=== PATIENT | female | born 1985 | race Caucasian/White ===

== ENCOUNTER 2017-08-27 14:24 | Inpatient (IN) | payer OTHER ==
[~2017-08-27] VITALS: Ht 157.5 cm; Wt 82.0 kg
[~2017-08-27 14:24] MED LIST: BNT10 PO; CPR500 PO; DIPH-416 PO; LRT5 PO; XNX25 PO
[2017-08-27] MEDS ORDERED: LACTATED RINGER'S 1000ML 1,000 ML IV PRN (15:08)
[2017-08-27] MEDS ORDERED: BUPIVACAINE 0.25% 30 ML VIAL ONE (15:48)
[2017-08-27] MEDS ORDERED: FENTANYL 2MCG/ML ROPIV 1.25MG/ML 100ML BAG EPI ONE (15:49)
[2017-08-27] MEDS ORDERED: EpHEDrine SULFATE INJ 50 MG/ML AMP ONE (15:49)
[2017-08-27] MEDS ORDERED: FENTANYL CITRATE INJ 50 MCG/1 ML 2 ML VIAL ONE (15:49)
[2017-08-27 15:52] LABS: HEMOGLOBIN 10.4 g/dL (12.0-16.0); MEAN CORPUSCULAR HEMOGLOBIN 27.3 pg (25-34); MEAN CORPUSCULAR HGB CONC 32.5 g/dl (32-36); MEAN PLATELET VOLUME 10.1 fL (7.4-10.4); PLATELET COUNT 199 K/uL (130-400); RED CELL DISTRIBUTION WIDTH CV 14.6 % (11.5-14.5); RED CELL DISTRIBUTION WIDTH SD 44.6 fL (36.4-46.3)
[2017-08-27] MEDS: LACTATED RINGER'S 1000ML 1,000 ML IV SCH (16:38)
[2017-08-27 16:53] VITALS: Ht 157.5 cm; Wt 82.0 kg
[2017-08-27] MEDS ORDERED: NALOXONE HCL INJ 1 MG in SODIUM CHLORIDE 0.9% 1000ML 1,000 ML IV PRN (16:55)
[2017-08-27] MEDS ORDERED: LACTATED RINGER'S 1000ML 500 ML IV PRN (16:55)
[2017-08-27] MEDS ORDERED: FENTANYL 2MCG/ML ROPIV 1.25MG/ML 100ML BAG EPI PRN (17:00)
[2017-08-27] MEDS ORDERED: DiphenhydrAMINE HCL 50 MG/ML VIAL IV PRN (17:00)
[2017-08-27] MEDS ORDERED: NALBUPHINE HCL INJ 10 MG/ML 1ML AMP IV PRN (17:00)
[2017-08-27] MEDS ORDERED: NALOXONE HCL INJ 0.4 MG/1 ML VIAL/CARP IV PRN (17:00)
[2017-08-27] MEDS ORDERED: EpHEDrine SULFATE INJ 50 MG/ML AMP IV PRN (17:00)
[2017-08-27] MEDS ORDERED: ONDANSETRON INJ 2 MG/ML 2 ML VIAL IV PRN (17:00)
[2017-08-27] MEDS ORDERED: LACTATED RINGER'S 1000ML 500 ML IV ONE (18:28)
[2017-08-27] MEDS ORDERED: METHYLERGONOVINE MALEATE 0.2 MG/ML AMP ONE (20:56)
[2017-08-27] MEDS ORDERED: MISOPROSTOL 200 MCG TAB PR SCH (21:45)
[2017-08-27] MEDS ORDERED: METHYLERGONOVINE MALEATE 0.2 MG/ML AMP IM ONE (21:45)
[2017-08-27] MEDS ORDERED: ACETAMINOPHEN/CODEINE 300/30MG TAB PO PRN ×2 (21:45)
[2017-08-27] MEDS ORDERED: OXYCODONE/ACETAMINOPHEN 5-325 TAB PO PRN (21:45)
[2017-08-27] MEDS ORDERED: HYDROCORTISONE ACETATE 25 MG SUPP PR PRN (21:45)
[2017-08-27] MEDS ORDERED: BENZOCAINE 20% AER SPR 82.5 GM CAN EXT PRN (21:45)
[2017-08-27] MEDS ORDERED: OXYTOCIN 30 UNITS/500ML NSS IV PRN (21:45)
[2017-08-27] MEDS ORDERED: LANOLIN OINT EXT PRN (21:45)
[2017-08-27] MEDS ORDERED: SUPERCREAM 0.870 % 15GM JAR EXT PRN (21:45)
--- NOTE | 2017-08-27 21:48 | Anesthesia Procedure Note ---
Anesthesia Epidural Removal Nt Date & Time Aug 27, 2017 at 21:48 Vital Signs Pain Intensity: 1 Notes Mental Status: alert / awake / arousable, participated in evaluation Nausea / Vomiting: adequately controlled Pain: adequately controlled Airway Patency, RR, SpO2: stable & adequate BP & HR: stable & adequate Hydration State: stable & adequate Neuraxial Anesthesia: was administered Anesthetic Complications: no major complications apparent, pt satisfied with anesthetic care Epidural: removed without complications, with tip intact
--- NOTE | 2017-08-27 22:12 | HISTORY & PHYSICAL EXAMINATION ---
DATE OF ADMISSION: 08/27/2017 HISTORY OF PRESENT ILLNESS: This is a 32-year-old G1, P0, due date 08/21/2017, making her 40 weeks and 6 days today, who presented to labor and delivery after spontaneous rupture of membranes at 1300 hours on 08/27/2017. On arrival to Labor and Delivery, she had no shortness of breath. No chills. No fever. There was [id number] discharge. AmniSure was done and found to be positive. The patient was examined by a nurse and found to be 4 cm, 90% effaced, and -1 station. Decision was therefore made to admit the patient. COURSE: Has been unremarkable. LABS: Blood type O positive, antibody negative, rubella immune, GBS negative. PAST MEDICAL HISTORY: History of irritable bowel, chronic sinus infection, asthma, and headaches. PAST SURGICAL HISTORY: The patient has had tonsillectomy at age 17 and colposcopies and diagnostic EGDs. ALLERGIES: THE PATIENT IS ALLERGIC TO MINOCYCLINE. SOCIAL HISTORY: The patient is , lives with her spouse. Denies drug, tobacco, or alcohol use. FAMILY HISTORY: Noncontributory. TELECOMMUNICATION ENGINEER HISTORY: This is the patient's first . PHYSICAL EXAMINATION: GENERAL: Well-developed, well-nourished white female in admission, moderate discomfort. HEART: S1, S2, regular rhythm and rate. LUNGS: Clear to auscultation bilaterally. ABDOMEN: Gravid. PELVIC: 4 cm, 90% effaced and -1 station. EXTREMITIES: No cyanosis, clubbing or edema. ASSESSMENT AND PLAN: A 32-year-old G1, P0 at 40 weeks and 6 days. Term premature rupture of membranes. Plan is to admit the patient. The patient is negative GBS. We anticipate vaginal delivery.
--- NOTE | 2017-08-27 22:35 | OPERATIVE REPORT ---
DATE OF OPERATION: 08/27/2017 DELIVERY NOTE The patient delivered a live female in left occiput anterior presentation. There was nuchal cord x2, which was easily reduced. was delivered, placed on mother's abdomen. Cord was clamped after 1 minute. Cord blood and cord gases were obtained. There was terminal meconium after delivery. The patient prior to delivery, there was no record of meconium noted. Placenta was spontaneously delivered. Inspection of the placenta shows a grossly normal-looking placenta with some meconium stain. There is 3-vessel cord. The patient had no fever or foul discharge, abdominal tenderness to her after labor process. The patient had been ruptured at 1300 hours on 08/27/2017. Estimated blood loss is 500 mL. The patient is given Pitocin and IM Methergine and 1000 mcg of Cytotec. Inspection of the perineum showed a second-degree midline laceration, which was repaired in layers with 0 Vicryl and 2-0 Vicryl. Rectal exam post repair showed good sphincter tone. No sutures palpated in the rectum. All instruments were removed from the vagina including packs, sutures, needles, and retractors and accounted for x2. Baby and mother are doing well in recovery. Infant's was reported as 8 and 9, weight is pending. Baby and mother are doing well in recovery. I attest to the content of the Intraoperative Record and any orders documented therein. Any exception s are noted below.
[2017-08-28] VITALS (7 sets, daily range): BP systolic 92–127; BP diastolic 58–82; PULSE 75–120; TEMP 36.5–37.5; O2SAT 98–100
[2017-08-28] MEDS ORDERED: EpHEDrine SULFATE INJ 50 MG/ML AMP ONE (01:04)
[2017-08-28] MEDS ORDERED: BUPIVACAINE 0.25% 30 ML VIAL ONE (01:04)
[2017-08-28] MEDS ORDERED: FENTANYL 2MCG/ML ROPIV 1.25MG/ML 100ML BAG EPI ONE (01:04)
[2017-08-28] MEDS ORDERED: FENTANYL CITRATE INJ 50 MCG/1 ML 2 ML VIAL ONE (01:04)
[2017-08-28] MEDS: IBUPROFEN 600 MG TAB PO PRN ×6 (01:29→23:00)
[2017-08-28] MEDS ORDERED: MISOPROSTOL 200 MCG TAB ONE (02:39)
--- NOTE | 2017-08-28 04:00 | NUR ---
Assisted patient out of bed to use bathroom and educate on cristy care, patient voided x 2 but felt dizzy and nauseated, assisted patient back to bed. VSS, at bedside and supportive, fundus is firm and bleeding is small to moderate with no clots noted. Patient requested be formula fed in nursery for tonight due to her not feeling well
--- NOTE | 2017-08-28 06:49 | OB/GYN Progress Note ---
ASPHALT HEATER TENDER Progress Note Date of Service Aug 28, 2017. Subjective conversation w/ patient, physical exam Ambulation: limited ambulation Voiding: no voiding problems Passing Gas: Yes Diet Tolerance: Regular Diet Lochia: Moderate Feeding Type: Breast Feeding Review of Systems Constitutional: No fever, No chills, No sweats, No weight loss, No weakness, No fatigue, No problem reported Respiratory: No cough, No sputum, No wheezing, No shortness of breath, No dyspnea on exertion, No dyspnea at rest, No hemoptysis, No problem reported Cardiac: No chest pain, No orthopnea, No PND, No edema, No claudication, No palpitations, No problem reported Breast: No see HPI, No breast lump, No change in shape, No nipple discharge, No breast pain, No problem reported Abdomen: No pain, No nausea, No vomiting, No diarrhea, No constipation, No GI bleeding, No problem reported Female : No see HPI, No dysuria, No urinary frequency, No hematuria, No incontinence, No abnormal vaginal bleeding, No vaginal discharge, No problem reported Objective Vital Signs Date Time Temp Pulse Resp B/P (MAP) Pulse Ox O2 Delivery O2 Flow Rate FiO2 08/28/17 04:00 37.0 75 18 122/75 (91) Room Air 08/28/17 00:30 Room Air 08/28/17 00:30 37.5 120 18 127/82 (97) Room Air Physical Exam General Appearance: WELL-APPEARING, WD/WN, NO APPARENT DISTRESS Respiratory/Chest: chest non-tender, lungs clear, normal breath sounds, no respiratory distress Cardiovascular: regular rate, rhythm, no edema, no gallop Abdomen: normal bowel sounds, non tender, soft Fundus: Firm Extremities: normal range of motion, non-tender, normal inspection Laboratory Results Last 24 Hours Test 08/27/17 15:08 08/27/17 15:43 White Blood Count 13.80 K/uL Red Blood Count 3.81 M/uL Hemoglobin 10.4 g/dL Hematocrit 32.0 % Mean Corpuscular Volume 84.0 fL Mean Corpuscular Hemoglobin 27.3 pg Mean Corpuscular Hemoglobin Concent 32.5 g/dl RDW Standard Deviation 44.6 fL RDW Coefficient of Variation 14.6 % Platelet Count 199 K/uL Mean Platelet Volume 10.1 fL Assessment and Plan Day Number: 1 Continue Routine Care: VD DAY #1 PT complaints of fatigue, and light headedness moderate lochia fundus is firm and below umbilicus STAT h/h restart IVF and tocolytics Blanco cath placed
[2017-08-28] MEDS ORDERED: OXYTOCIN 30 UNITS/500ML NSS IV PRN (07:30)
[2017-08-28] MEDS ORDERED: METHYLERGONOVINE MALEATE 0.2 MG/ML AMP IM ONE (07:30)
[2017-08-28] MEDS ORDERED: METHYLERGONOVINE MALEATE 0.2 MG/ML AMP ONE (07:47)
[2017-08-28] MEDS ORDERED: LACTATED RINGER'S 1000ML 500 ML IV SCH (07:55)
--- NOTE | 2017-08-28 08:00 | NUR ---
Received order from Dr. Cote to give IM Methergine, insert Blanco, Pitocin 30 Units in 500ml, then LR bolus of 500 cc than switch 125cc of LR. Patient very painful due to uterine cramping/full bladder. Patient was shaking. Bladder drain for 900cc of clear urine. Gave tylenol #3 x2 after the above was performed.
[2017-08-28 08:05] LABS: HEMATOCRIT 24.2 % (37-47); HEMOGLOBIN 7.8 g/dL (12.0-16.0)
[2017-08-28] MEDS ORDERED: LACTATED RINGER'S 1000ML 1,000 ML IV SCH (08:25)
[2017-08-28] MEDS: DOCUSATE SODIUM 100 MG CAP PO SCH ×2 (09:23→19:47)
[2017-08-28] MEDS: PRENATAL VITAMIN TAB PO SCH (09:23)
[2017-08-28] MEDS: FERROUS SULFATE 325 MG TAB PO SCH (09:23)
--- NOTE | 2017-08-28 11:15 | NUR ---
Pt feeling well enough to attempt at this time. Mother with inverted nipples and baby is tongue tied. Attempted latch, baby unable to latch on. Nipple shield given d/t inverted nipples. Baby did not latch on with use of shield. Baby syringe fed formula by father. Showed mother how to manually express (no colostrum noted) and had mother use breast pump for 15 minutes. Mother got a few drops of colostrum. Colostrum fed to baby.
--- NOTE | 2017-08-28 11:30 | NUR ---
Baby skin to skin with mother. Bonding well.
[2017-08-28] MEDS: LACTATED RINGER'S 1000ML 1,000 ML IV SCH (15:37)
--- NOTE | 2017-08-28 17:40 | NUR ---
pt. dangled for a little bit while eating supper
[2017-08-28 19:28] LABS: HEMATOCRIT 22.5 % (37-47); HEMOGLOBIN 7.5 g/dL (12.0-16.0)
[2017-08-28] MEDS ORDERED: BISACODYL 5 MG TABEC PO SCH (20:00)
[2017-08-29] VITALS (12 sets, daily range): BP systolic 102–118; BP diastolic 67–78; PULSE 88–110; TEMP 36.6–37.1; O2SAT 96–97
[2017-08-29] MEDS: LACTATED RINGER'S 1000ML 1,000 ML IV SCH (01:03)
[2017-08-29] MEDS: IBUPROFEN 600 MG TAB PO PRN ×4 (03:04→20:06)
[2017-08-29 06:14] LABS: HEMATOCRIT 21.8 % (37-47); HEMOGLOBIN 7.1 g/dL (12.0-16.0); MEAN CELL VOLUME 84.5 fL (80-100); MEAN CORPUSCULAR HEMOGLOBIN 27.5 pg (25-34); MEAN CORPUSCULAR HGB CONC 32.6 g/dl (32-36); MEAN PLATELET VOLUME 10.1 fL (7.4-10.4); PLATELET COUNT 170 K/uL (130-400); RED CELL DISTRIBUTION WIDTH CV 14.7 % (11.5-14.5); RED CELL DISTRIBUTION WIDTH SD 45.4 fL (36.4-46.3); WHITE BLOOD COUNT 14.13 K/uL (4.8-10.8)
[2017-08-29] MEDS ORDERED: BISACODYL 10 MG SUPP PR PRN (07:00)
[2017-08-29] MEDS: FERROUS SULFATE 325 MG TAB PO SCH ×2 (08:19→17:35)
[2017-08-29] MEDS: DOCUSATE SODIUM 100 MG CAP PO SCH ×2 (08:19→20:05)
[2017-08-29] MEDS: PRENATAL VITAMIN TAB PO SCH (08:19)
--- NOTE | 2017-08-29 09:14 | OB/GYN Progress Note ---
INTERNET ARCHITECT Progress Note Date of Service: Aug 29, 2017. Patient is seen and examined. She feels well, no complaints other than being tired Ambulated once only to the BR this morning She had pp hemorrhage and was in bed for IVF and enamorado Enamorado was d/c'd this morning and she voided once Tolerating regular diet with out N&V Bleeding is minimal No fever/ chills/ CP/ SOB/ N&V/ Leg pain Breast feeding without problems Date Time Temp Pulse Resp B/P (MAP) Pulse Ox O2 Delivery O2 Flow Rate FiO2 08/28/17 23:10 36.5 99 17 102/66 (78) Room Air 08/28/17 23:10 98 Room Air 08/28/17 19:30 36.9 103 20 115/73 (87) Room Air 08/28/17 16:00 Room Air 08/28/17 15:20 36.9 90 18 92/58 (69) Room Air 08/28/17 11:00 36.5 100 16 101/69 (80) 98 Room Air Pulse 106 Last 24 Hours Test 08/28/17 19:06 08/29/17 05:50 Hemoglobin 7.5 g/dL 7.1 g/dL Hematocrit 22.5 % 21.8 % White Blood Count 14.13 K/uL Red Blood Count 2.58 M/uL Mean Corpuscular Volume 84.5 fL Mean Corpuscular Hemoglobin 27.5 pg Mean Corpuscular Hemoglobin Concent 32.6 g/dl RDW Standard Deviation 45.4 fL RDW Coefficient of Variation 14.7 % Platelet Count 170 K/uL Mean Platelet Volume 10.1 fL PE: General: Pale, Alert, orientedx3, NAD CVS: S1S2 RRR, tachycardic at 106 Lungs: CTAB Abd: soft, NT, fundus firm, below Umbilicus Perineum intact, Lochia rubra minimal Ext; NT, no edema AP: 32 yo s/p , pp hemorrhage controlled with IV pitocin and methergine, ppd# 2 VSS Afebrile doing well Anemic: Hb 7.1, Htc 21 Discussed iron therapy which may take weeks to increase her number vs blood transfusion Discussed the risks of blood transfusion like infection, allergic reaction, fever,c hills, rash, TRALI, severe reaction She read the consent and desired blood to be given today Continue routine care All questions were answered
[2017-08-29] MEDS: ACETAMINOPHEN 325 MG TAB PO PRN (10:35)
--- NOTE | 2017-08-29 12:51 | OB/GYN Progress Note ---
PROMOTIONS REPRESENTATIVE Progress Note Date of Service: Aug 29, 2017. Patient is reevalauated She is receiving the 1st unit of blood No complaints, feels well No fever/ chills/ itching/ rash Date Time Temp Pulse Resp B/P (MAP) Pulse Ox O2 Delivery O2 Flow Rate FiO2 08/29/17 12:35 36.9 102 20 116/75 08/29/17 12:05 37.1 98 16 115/74 08/29/17 12:05 37.1 98 16 115/74 08/29/17 11:50 37.0 102 16 118/74 08/29/17 11:34 36.8 105 18 112/73 08/29/17 08:20 36.7 96 20 105/71 (82) 08/28/17 23:10 36.5 99 17 102/66 (78) Room Air 08/28/17 23:10 98 Room Air 08/28/17 19:30 36.9 103 20 115/73 (87) Room Air 08/28/17 16:00 Room Air 08/28/17 15:20 36.9 90 18 92/58 (69) Room Air VSS Afebrile, doing well Continue to monitor closely Check H&H after transfusion is complete
[2017-08-29] MEDS ORDERED: PRENTAB26 PO (12:53)
[2017-08-29] MEDS ORDERED: FRRS300 PO (12:53)
--- NOTE | 2017-08-29 12:55 | Discharge Instructions ---
Discharge Instructions Date of Service Aug 29, 2017. Admission Reason for Admission: Premature Rupture Of Membranes Discharge Discharge Diagnosis / Problem: , hemorrhage, blood transfusion Discharge Goals Goal(s): Routine recovery after delivery Medications Continue Dispensed Medications: lansinoh Activity Recommendations Activity Limitations: as noted below ACTIVITY RECOMMENDATIONS: * Gradual return to full activity over the next 2-3 weeks. * No lifting - nothing heavier than baby over the next 2-3 weeks. * Do not engage in vigorous exercise, sexual activity or sports until cleared by your physician. * Do not drive or operate any motorized equipment until cleared by your physician. * You may shower/bathe daily. BREAST CARE: If you are not breast feeding: * Wear a supportive bra 24 hours a day for one to two weeks. * Avoid stimulating your breasts and nipples as much as possible during the first few weeks after delivery. * When taking a shower, have the warm water hit your back, not breasts. * When your breasts feel full, apply ice packs. Usually three to four times a day helps ease the discomfort. * Take a mild pain medication (Tylenol/Motrin) when you are uncomfortable. If breast feeding: * Use breast milk to lubricate nipples. Lansinoh cream may be used for sore nipples. You do not need to remove cream prior to breast feeding. If using a different brand of cream, check the label for directions regarding removal of cream prior to nursing. * Wear a supportive bra. * If having problems with breasts or breast feeding, call a acura sales consultant or your health care provider. EPISIOTOMY CARE: After delivery, if you have an episiotomy (stitches), the following steps will ease discomfort and aid healing. * For the first 24 hours after delivery, place ice packs next to your episiotomy to help reduce swelling. * After the first 24 hour-period, sitz baths, either portable or in the tub, are suggested. A shower with a shower arm sprayed over the episiotomy may be comforting. * Lamar care should be done after each voiding and bowel movement. Squirt warm water from a plastic bottle over the perineum (region of the body between the anus and urinary opening) and pat dry. * Use Dermoplast to ease discomfort. Shake container. Claude directly over the episiotomy. * Place a Tucks on a clean sanitary pad next to your episiotomy. OVER THE COUNTER MEDICATION: * For discomfort or pain, you may use Acetaminophen (Tylenol), Ibuprofen (Advil ), or Naproxen (Aleve) following the package directions. * For constipation you may use Colace following the package directions. SPECIAL CARE INSTRUCTIONS: When you are discharged from the hospital, it is important for you to follow the instructions listed below: * During the first week at home, you should be able to care for yourself and your baby. In addition, the usual light household activities are encouraged. * Limit your activities to the way you feel. Do not try to clean the house or move furniture. Be sensible. * If you actively engage in sports and have done so up until the time of your delivery, you may resume these activities as soon as you feel able. This may take up to one month or even longer. Use good judgment. * Continue to take your vitamins for at least six weeks after the of your baby. * Your diet need not be limited unless you were on a special diet before your delivery. Breast-feeding mothers need around 2500 calories per day and at least 64-80 ounces of fluid per day (8 to 10 glasses). * You should eat foods from the four major food groups. Crash diets or fad diets are to be avoided. Eating lean meats, fresh fruits and vegetables, low-fat dairy products, high fiber foods and a regular exercise program, will help you get back to your pre- weight without putting your health at risk. * Constipation is sometimes a problem after delivery. Take a mild laxative as needed. If breast feeding, Milk of Magnesia is acceptable to use. You may use a suppository or Fleets enema if no episiotomy. * A daily shower or tub bath is suggested. Be sure to thoroughly and gently dry the perineum. * A bloody vaginal discharge will usually continue until around four weeks post . A small amount of bleeding may continue for as long as six weeks. Vaginal discharge changes from the bright red bleeding after delivery to pink then brownish and finally yellowish-pink before becoming white and disappearing. * Bleeding may increase with activity. Your first period may come in 4-8 weeks. If you are breast feeding, your period may be delayed even longer. * [place]mere (sex) can begin whenever both you and your partner feel comfortable and do not have any form of genital infection. It is recommended that you wait until after your return appointment and discuss with your physician. If you have questions, please talk to your health care practitioner. A condom should be used to prevent infection and . * Foreplay, gentle intercourse and lubrication is very important the first several times to prevent pain. A water-based lubricant such as K-Y jelly or Astroglide may be used. * Tampons may be used six weeks after delivery. * Douching should be avoided for 6 weeks after delivery. * If you have RH negative blood and your baby is RH positive, you will receive RHOGAM by injection prior to discharge. The nurse will give you a card to keep with you that has the date and place that you received RHOGAM after delivery. * During your care, you had a Rubella screen done to check for the presence of rubella antibodies in your blood. If your test was negative, you will receive a Rubella vaccine prior to discharge. This vaccine may cause a fever, soreness at the injection site and flu-like symptoms. If these symptoms persist, notify your health care practitioner. is not advised for three months after a Rubella vaccine. There is a higher chance of having a baby with defects if conceived within three months of getting the vaccine. * If you were discharged 24 hours from delivery or before 48 hours: Visiting nurses will come to your home 48 hours after discharge to assess you and your baby. The visiting nurse will meet with you while you are in the hospital to arrange a time and get directions to your home. * Verbalizes understanding of car seat law as reviewed with patient nursing. * Car Seat hand-out given and reviewed with patient by nursing. * Shaken baby information reviewed with patient by nursing. Call you doctor if: * Heavy bleeding (saturating several pads an hour) or passing clots the size of your fist. * A fever >101 degrees F (38.3 degrees C) on two occasions four hours apart and/or chills. * Unusual pain in the pelvic or vaginal areas. * "Baby Blues" lasting longer than two weeks. If you have any questions or concerns, call your health care practitioner at . FOLLOW-UP VISIT: * Please call the office at to schedule a 6 week examination. It is important you keep this appointment. * It is important for you to make arrangements for either yearly or twice yearly check-ups thereafter. . Current Hospital Diet Patient's current hospital diet: Regular OB Diet Discharge Diet Recommended Diet: Regular Diet Pending Studies Studies pending at discharge: no Medical Emergencies . Who to Call and When: Medical Emergencies: If at any time you feel your situation is an emergency, please call 911 immediately. . Non-Emergent Contact Non-Emergency issues call your: Surgeon, Specialist Call Non-Emergent contact if: temperature is above 100.5, your pain is not controlled, your pain is worsening . . "Provider Documentation" section prepared by Trish Ray. . VTE Core Measure Inpt VTE Proph given/why not?: Treatment not indicated
--- NOTE | 2017-08-29 13:10 | NUR ---
1st unit PRBC finished, pt. tolerated well, vital signs stable. Pt. voices no complaints. Sleeping at intervals.
--- NOTE | 2017-08-29 14:55 | NUR ---
2ND unit PRBC finished. Pt. voiced no complaints, vital signs stable. Tolerated well.
[2017-08-29 20:05] LABS: HEMOGLOBIN 9.4 g/dL (12.0-16.0)
--- NOTE | 2017-08-29 20:14 | NUR ---
Met with parents and infant at 1999. Introduced self and offered assistance with breast feeding. This is their first infant. She just finished eating, however parents had numerous questions and did state they took a class with Latasha Leigh prior to delivery. They stated they were pleased with breast feeding currently however, dad had lots of questions regarding, latch, the fact they supplemented their formula today (while mom was receiving a blood transfusion), positioning, and milk production. Mom had questions regarding engorgement and what to expect. Printed out information from Tamiko garcia's website regarding Engorgement and Reverse Pressure Softening and demonstrated hand positioning for this technique in addition to showing pictures printed from website. Reassured mother she is doing everything right and was encouraging dad was very involved, helpful, and emotionally supportive. Encouraged as much skin to skin as possible. Reviewed sleep/wake states, feeding cues, hand expression, and to ring when is showing feeding cues for assistance with next feeding. Addendum: 08/29/17 at 2024 by Rosalia Chavez RN This note was placed by Rosalia Chavez RN, CLC
--- NOTE | 2017-08-29 22:52 | NUR ---
Met with parents and infant at 2220 for assistance with . Infant was not showing feeding cues and in a deep sleep held in football on rt. breast. Mom has everted nipples and stated she didn't like the shield or pump. Assisted mom with hand expression and she was able to express cholostrom from rt. breast several drops. Infant then woke up and assisted infant to latch left side both football and cradle position. Noticed latch was not sealed in either position and heard a rhythmic clicking sounds. They did state their was diagnosed with "tongue tied", however at this point continue to monitor and assess. At this time, repositioned infant in football hold on rt. breast and latch went well, no clicking sounds noted, rhythmic sealed suction , asymmetric latch in rocker motion. Discussed with parents they are doing everything correct. Reviewed feeding, cues, hand expression, burping, and as much skin to skin as possible. Rosalia Chavez RN, CLC
[2017-08-30] MEDS: IBUPROFEN 600 MG TAB PO PRN ×4 (00:14→14:23)
[2017-08-30 00:25] VITALS: BP 109/71; PULSE 64; TEMP 36.7
[2017-08-30] MEDS ORDERED: MTR600X PO (07:13)
--- NOTE | 2017-08-30 07:16 | OB/GYN Progress Note ---
WATER TREATMENT PLANT OPERATOR Progress Note Date of Service Aug 30, 2017. Subjective conversation w/ patient Ambulation: ambulating normally Voiding: no voiding problems Passing Gas: Yes Diet Tolerance: Regular Diet Lochia: Small Feeding Type: Breast Feeding Pain: 11/05 Notes: Doing well. Feeling better after the blood transfusions. Pain well controlled. Pain well controlled. Ambulating without difficulty. Lochia minimal. Would like to go home today. Objective Vital Signs Date Time Temp Pulse Resp B/P (MAP) Pulse Ox O2 Delivery O2 Flow Rate FiO2 08/30/17 00:25 Room Air 08/30/17 00:25 36.7 64 18 109/71 (84) Room Air 08/29/17 15:35 96 Room Air 08/29/17 15:35 36.9 92 18 112/76 (88) 96 Room Air 08/29/17 14:53 37.0 110 16 117/74 97 08/29/17 14:30 37.0 91 20 117/75 96 08/29/17 14:00 37.0 88 16 117/78 97 08/29/17 13:45 36.9 92 16 105/70 97 08/29/17 13:26 36.6 96 16 102/67 97 0.0 08/29/17 13:10 36.9 99 20 107/71 08/29/17 12:35 36.9 102 20 116/75 08/29/17 12:05 37.1 98 16 115/74 08/29/17 12:05 37.1 98 16 115/74 08/29/17 11:50 37.0 102 16 118/74 08/29/17 11:34 36.8 105 18 112/73 08/29/17 08:20 36.7 96 20 105/71 (82) Physical Exam General Appearance: WELL-APPEARING Respiratory/Chest: chest non-tender, lungs clear Cardiovascular: regular rate, rhythm Abdomen: normal bowel sounds, soft Fundus: Firm, Non-Tender Extremities: normal range of motion, non-tender, no calf tenderness Laboratory Results Last 24 Hours Test 08/29/17 19:55 08/30/17 06:14 Hemoglobin 9.4 g/dL Hematocrit 28.0 % Assessment and Plan Day Number: 2 Continue Routine Care: -D/C home today -F/U in 6 weeks.
[2017-08-30] MEDS: PRENATAL VITAMIN TAB PO SCH (09:00)
[2017-08-30] MEDS: FERROUS SULFATE 325 MG TAB PO SCH ×2 (09:00→16:58)
[2017-08-30] MEDS: DOCUSATE SODIUM 100 MG CAP PO SCH (09:00)
--- NOTE | 2017-08-30 10:45 | NUR ---
Pt engorged, breasts firm and painful. Breastfed left breast with nipple shield and right breast without shield. Breasts remain full and nipples are red and sore. Warm compresses applied to breasts and breasts massaged while patient used breast pump. About 4cc of colostrum pumped from breasts after 10 minutes of pumping. Warm saline soaks applied to nipples for about 10 minutes. Pt states some relief. Cold cabbage leaves applied to breasts for engorgement. Pt experiencing some relief. Pt encouraged to shower and to massage and manually express breast milk while warm water is running over breasts. Mother was in the shower for about 20 minutes and stated that the shower made her feel better. Pt encouraged to rest dad will feed expressed breast milk at 1220 and mom will feed baby at 1320.
[2017-08-30 11:30] VITALS: BP 131/83; PULSE 98; TEMP 36.6; O2SAT 99
--- NOTE | 2017-08-30 14:20 | NUR ---
Breasts engorged, firm and painful. Patient breastfed . latched on the Right breast without the shield, on the Left breast she used the nipple shield. After feeding, pt was encouraged to pump on the left side because she used the shield on that side. Pt got 4cc from 15 minutes of pumping. After pumping, warm saline soaks applied for about 10 minutes. Pt stated that her breast were feeling a little better. Breast appear softer than what they were previously. Hydrogels applied at this time.
[2017-08-30 15:12] VITALS: BP 113/76; PULSE 86; TEMP 36.8; O2SAT 98
[2017-08-30] MEDS: ACETAMINOPHEN 325 MG TAB PO PRN (17:08)
[2017-08-30 18:15] VITALS: BP_DIAS 76; PULSE 86; TEMP 36.8
--- NOTE | 2017-08-30 18:45 | NUR ---
verbalized discharge instructions. To lobby via wheelchair with and
== END 2017-08-30 18:45 | disposition home or self-care (01) | DRG 775 ==
LOC: C.OPB 14:24 → C.LD 14:24 → C.OPB 15:10 → C.LD 15:10 → C.OBG 08-28 00:36
PROVIDERS: ADMIT Obstetrics & Gynecology; ATTEND Obstetrics & Gynecology
PROC: 0KQM0ZZ Repair Perineum Muscle, Open Approach (ICD-10-PCS; principal; 2017-08-27)
PROC: 10E0XZZ Delivery of Products of Conception, External Approach (ICD-10-PCS; principal; 2017-08-27)
DX: O70.1 Second degree perineal laceration during delivery (principal); O69.81X1 Labor and delivery complicated by cord around neck, without compression, fetus 1; Z37.0 Single live birth; Z3A.40 40 weeks gestation of pregnancy